=== PATIENT | female | born 1980 | race Caucasian/White ===

== ENCOUNTER 2016-11-01 14:42 | Outpatient (CLI) | payer MEDICAID | END 2016-11-01 23:59 | DX: M79.643 Pain in unspecified hand (principal) ==

== ENCOUNTER 2017-07-08 06:06 | Day surgery (SDC) | payer MEDICAID ==
[2017-07-08] MEDS ORDERED: LACTATED RINGERS 1,000 ML IV ONE (06:31)
[2017-07-08 06:50] LABS: HCG UR QUAL NEGATIVE
[2017-07-08] MEDS ORDERED: BUPIVACAINE 0.25% PF 30 ML VIAL SUBQ ONE ×2 (07:56)
[2017-07-08] MEDS ORDERED: LIDOCAINE 1%-EPI 1:100000 30 ML MDV SUBQ ONE ×2 (07:56)
[2017-07-08] MEDS ORDERED: PROPOFOL 200 MG/20 ML VIAL IVP ONE (08:00)
[2017-07-08] MEDS ORDERED: fentaNYL 100 MCG/2 ML VIAL IVP ONE (08:00)
[2017-07-08] MEDS ORDERED: LIDOCAINE-MPF 2% 5 ML VIAL IM ONE (08:00)
[2017-07-08] MEDS ORDERED: MIDAZOLAM 2 MG/2 ML VIAL IVP ONE (08:00)
[2017-07-08] MEDS ORDERED: MEPERIDINE 50 MG/ML SYRINGE ONE (08:30)
[2017-07-08] MEDS ORDERED: KETOROLAC 15 MG/ML VIAL ONE (08:41)
[2017-07-08] MEDS ORDERED: ACETAMINOPHEN 1,000 MG/100 ML 100 ML IV ONE (08:41)
[2017-07-08 09:37] VITALS: BP 110/62
--- NOTE | 2017-07-08 11:28 | OPERATIVE REPORT ---
DATE OF SURGERY: 07/08/2017 00:00:00 PREOPERATIVE DIAGNOSIS: Bilateral carpal tunnel syndrome. POSTOPERATIVE DIAGNOSIS: Bilateral carpal tunnel syndrome. NAME OF PROCEDURE: Bilateral carpal tunnel release. SURGEON: Selina Cordoba MD. ANESTHESIA: Local and sedation, Julianna WESTBROOK. 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 She desires carpal tunne l release surgery. DESCRIPTION OF OPERATIVE PROCEDURE: The patient was taken to the operating room, was given a MAC anes thetic and each hand was then sterilely infiltrated with a combination of 5 mL of 1% lidocaine with e pinephrine and 5 mL of 0.25% Marcaine. Following this, both hands were sterilely prepped and draped i n the standard fashion. The initial surgery was done on the right hand with a 1-1/4 incision in the p phil in line with the radial aspect of the fourth finger. The incision taken through skin and subcutan eous tissue and exposing the transverse carpal ligament, which was divided directly in line with the incision. The release ended at the distal aspect at the level of the superficial arch at the proximal aspect at the level of the distal wrist flexion crease. Once the release was complete, the area was irrigated and closed with interrupted 4-0 nylon and sterile dressings were applied. The identical pro cedure was then done on the left and with a 1-1/4 inch palmar incision. Careful dissection to transve rse carpal ligament, which was divided in line with the incision, followed by inspection of the sebastian nts of the tunnel and flushing irrigation and closure with 4-0 nylon. Sterile dressings were applied to the left hand as well and the patient was then taken to the recovery room in stable condition. ESTIMATED BLOOD LOSS: Minimal. COMPLICATIONS: None. SPONGE AND NEEDLE COUNTS: Correct. JOB #: [id number] EXT JOB #:[id number]
== END 2017-07-08 06:07 | disposition home or self-care (01) ==
LOC: SDS 06:06
PROVIDERS: ATTEND Orthopaedic Surgery
PROC: 01N50ZZ Release Median Nerve, Open Approach (ICD-10-PCS; 2017-07-08)
PROC: 01N50ZZ Release Median Nerve, Open Approach (ICD-10-PCS; principal; 2017-07-08 07:30)
DX: G56.03 Carpal tunnel syndrome, bilateral upper limbs (principal)
CPT/HCPCS: 64721; 81025; J0131; J7120